=== PATIENT | male | born 1950 | race African-American/Black ===

== ENCOUNTER 2018-12-07 13:15 | Inpatient (IN) | payer MEDICARE ==
[~2018-12-07] VITALS: Ht 172.7 cm; Wt 44.2 kg
[2018-12-07 14:21] LABS: BASOPHILS # (AUTO) 0.1 (0.0-0.1); BASOPHILS % 0.5 % (0.0-1.0); EOSINOPHILS % 0.2 % (0.0-6.0); HEMATOCRIT 33.8 % (38.2-49.6); HEMOGLOBIN 11.3 g/dL (14.0-18.0); LYMPHOCYTES # (AUTO) 1.9 (1.0-3.2); LYMPHOCYTES % 19.6 % (18.0-39.1); MEAN CORPUSCULAR HGB CONC 33.4 g/dL (31-35); MEAN CORPUSCULAR VOLUME 80.7 fL (81-99); MONOCYTES # (AUTO) 0.9 (0.2-0.8); MONOCYTES % 9.2 % (4.4-11.3); NEUTROPHILS # (AUTO) 6.8 (2.1-6.9); NEUTROPHILS % 69.9 % (38.7-80.0); PLATELET COUNT 357 x10e3/uL (140-360); RED BLOOD COUNT 4.19 x10e6/uL (4.3-5.7); RED CELL DISTRIBUTION WIDTH 18.5 % (11.7-14.4)
[2018-12-07 14:31] LABS: INR 1.02; PARTIAL THROMBOPLASTIN TIME 34.3 seconds (23.8-35.5); PROTHROMBIN TIME 14.3 seconds (11.9-14.5)
[2018-12-07] MEDS ORDERED: PRAZOSIN HCL2 MG PO (14:31)
[2018-12-07] MEDS ORDERED: METOPROLOL SUCC25 MG PO (14:31)
[2018-12-07] MEDS ORDERED: SIMVASTATIN20 MG PO (14:31)
[2018-12-07] MEDS ORDERED: LOPRESSOR25 MG PO (14:31)
[2018-12-07] MEDS ORDERED: TRAZODONE HCL150 MG PO (14:31)
[2018-12-07] MEDS ORDERED: CYMBALTA60 MG PO (14:31)
[2018-12-07 14:38] LABS: ALBUMIN 2.7 g/dL (3.5-5.0); ALBUMIN/GLOBULIN RATIO 0.6 (0.8-2.0); ALKALINE PHOSPHATASE 82 IU/L (40-150); ANION GAP 17.8 mmol/L (8-16); BLOOD UREA NITROGEN 7 mg/dL (7-26); BUN/CREATININE RATIO 8 (6-25); CALCIUM 9.4 mg/dL (8.4-10.2); CARBON DIOXIDE 26 mmol/L (22-29); CHLORIDE 103 mmol/L (98-107); CREATINE KINASE 30 IU/L (30-200); CREATININE, SERUM 0.86 mg/dL (0.72-1.25); EST GLOMERULAR FILTRATION RATE > 60 ML/MIN (60-); GLUCOSE 103 mg/dL (74-118); POTASSIUM 3.8 mmol/L (3.5-5.1); SODIUM 143 mmol/L (136-145)
[2018-12-07 14:41] LABS: ALANINE AMINOTRANSFERASE < 6 IU/L (0-55)
--- NOTE | 2018-12-07 15:24 | Diagnostic Imaging Report ---
EXAMINATION: CHEST SINGLE (PORTABLE) INDICATION: Left leg pain, weakness COMPARISON: None FINDINGS: TUBES and LINES: None. LUNGS: Emphysematous changes of lungs. There is a right hilar mass. There are calcified granulomas in the left hilum and left midlung. No evidence of pneumonia or pulmonary edema. There is left bronchial wall thickening. PLEURA: No pleural effusion or pneumothorax. HEART AND MEDIASTINUM: The cardiomediastinal silhouette is unremarkable. BONES AND SOFT TISSUES: No acute osseous lesion. Soft tissues are unremarkable. UPPER ABDOMEN: No free air under the diaphragm. IMPRESSION: Right hilar mass, which could reflect pulmonary mass or lymphadenopathy. Chest CT is recommended for further evaluation. Calcified granulomas in the left hilum and left mid lung. Emphysematous changes of the lungs. Signed by: Dr. Sierra Levine MD on 12/07/2018 3:21 PM
--- OUTSIDE RECORDS SUMMARY | 2018-12-07 15:58 | XMS REPORT ---
Author Author [facility] Address Unknown Phone Unavailable Care Team Providers Care [facility] Consultant Name Role Phone Dick LUCAS Unavailable Unavailable Problems This patient has no known problems. Allergies, Adverse Reactions, Alerts This patient has no known allergies or adverse reactions. Medications This patient has no known medications. Results Test Description Test Time Test Comments Text Results Atomic Results Result Comments CHEST SINGLE (PORTABLE) 2018-12-07 15:16:00 [place] [id number] Patient Name: JUDY DO MR #: [id number] : 1950 Age/Sex: 68/M Req #: [id number] Adm Physician: Ordered by: GUERITA SPENCE INSURANCE BILLER Report #: [id number] Location: ER Room/Bed: Procedure: [id number] DX/CHEST SINGLE (PORTABLE) Exam Date: 12/07/18 Exam Time: 1450 REPORT STATUS: Signed EXAMINATION: CHEST SINGLE (PORTABLE) AMANDA CATION: Left leg pain, weakness COMPARISON: None FINDINGS: TUBES and LINES: None. LUNGS: Emphysematous changes of lungs. There is a right hilar mass. There are calcified granulomas in the left hilum and left midlung. No evidence of pneumonia or pulmonary edema. There is left bronchial wall thickening. PLEURA: No pleural effusion or pneumothorax. HEART AND MEDIASTINUM: The cardiomediastinal silhouette is unremarkable. BONES AND SOFT TISSUES: No acute osseous lesion. Soft tissues are unremarkable. UPPER ABDOMEN: No free air under the diaphragm. IMPRESSION: Right hilar mass, which could reflect pulmonary mass or lymphadenopathy. Chest CT is recommended for further evaluation. Calcified granulomas in the left hilum and left mid lung. Emphysematous changes of the lungs. Signed by: Dr. Tatianna Donovan MD on 12/07/2018 3:21 PM Dictated By: TATIANNA DONOVAN MD 1521 Transcribed By: MILTON on 12/07/18 1521 COPY TO: GUERITA SPENCE NP
[2018-12-07] MEDS: SODIUM CHLORIDE 0.9% 1000ML 1,000 ML IV SCH ×2 (16:29→18:10)
[2018-12-07 17:27] VITALS: BP 175/110
[2018-12-07] MEDS ORDERED: LABETALOL HCL 5 MG/ML 20ML VIAL IV PRN (17:45)
[2018-12-07] MEDS: LABETALOL HCL 20 MG/4 ML SYRINGE IV PRN ×2 (18:00→20:36)
[2018-12-07] MEDS ORDERED: NORCO 7.5-3251 EACH PO (18:30)
[2018-12-07] MEDS ORDERED: SODIUM CHLORIDE 0.9% 50ML 50 ML ONE (18:49)
[2018-12-07] MEDS ORDERED: IOPAMIDOL 370 MG/ML 200 ML INFUS..BTL INJ ONE (18:49)
--- NOTE | 2018-12-07 18:52 | Diagnostic Imaging Report ---
CT chest, abdomen and pelvis with intravenous contrast Indication: Possible mass, leg pain and weakness Technique: Thin collimation axial images obtained from the thoracic inlet to the level of the pubic symphysis following the uneventful administration of 100 cc of low osmolar, nonionic intravenous contrast. RADIATION DOSE: Total DLP: 332.56 mGy*cm Estimated effective dose: (DLP x 0.015 x size factor) mSv CTDIvol has been reviewed. It is below the limits set by the Radiation Protocol Committee (RPC). Dose reduction techniques used: Automated exposure control, adjustment of the mAs and/or kVp according to patient size, standardized low-dose protocol, and/or iterative reconstruction technique. Comparison: Chest x-ray 12/07/2018. CHEST FINDINGS: Lymph nodes: No enlarged axillary or supraclavicular lymph nodes. A right paratracheal lymph node measures 0.9 x 1.3 cm. Right hilar lymph nodes measure 2.1 x 2.3 cm and 2.0 x 1.3 cm. There are no enlarged subcarinal or left hilar lymph nodes. A cluster of calcified left hilar lymph nodes are present. Thyroid: Visualized portions are normal. Mediastinum: The heart is normal in size. The ascending aorta measures 3.9 cm in diameter. The proximal descending thoracic aorta measures 3.9 x 3.8 cm with focal ectasia just distal to the takeoff of the left subclavian artery. The mid descending thoracic aorta measures 2.9 cm. The main pulmonary artery measures 3.2 cm. There are no filling defects in the great vessels. Pericardial effusion measures 0.8 cm. The esophagus is collapsed. Lungs: Right Lung: Centrilobular and paraseptal emphysema. Mass in the anterior and inferior upper lobe abutting the mediastinum and the anterior pleural surface measures 6.2 x 4.7 x 5.6 cm. This mass also abuts the minor fissure. No satellite nodules. Calcified granuloma in the posterior upper lobe measures 4 mm. No mass or infiltrate in the lower lobe. Left Lung: Centrilobular and paraseptal emphysema. Calcified granuloma in the lateral upper lobe measures 8 mm. There are 2 calcified granulomata along the major fissure measuring up to 3 mm. Pleural-based nodule in the lateral lower lobe measures 4 mm (series 3, image 44). There are no infiltrates. Airways: Small amount of mucous in the anterior trachea to the right of midline. There is cylindrical bronchiectasis. The anterior right upper lobe bronchus is occluded at the level of the mass. Pleura:No pleural effusion or pneumothorax. ABDOMEN FINDINGS: Liver: Calcification in the liver dome measures 6 mm. Subcapsular low attenuating lesion in segment 4A measures 6 mm. Low attenuating lesion in segment 2 measures 4 mm. No enhancing lesions. Gallbladder: Present and contains subcentimeter gallstones.. No biliary ductal dilatation. Pancreas: There are several calcaneus is the pancreas head. No soft tissue mass or ductal dilatation. Divisum morphology of the pancreas duct is suspected. Spleen: Normal in size and contains multiple calcified granulomata. A low attenuating lesion measures 5 mm and is too small to characterize.. Adrenal Glands: Thickening of the adrenal glands particularly at the apices. A low attenuating nodule in the left adrenal apex measures 8 x 8 mm. A potential nodule in the lateral limb of the left adrenal gland measures 1.6 x 0.9 cm. No defined mass in the right adrenal gland. Kidneys: Right: Atrophic. 2 cysts in the upper pole measure up to 11 mm. A cyst in the lower pole measures 4 mm. No enhancing mass. No hydronephrosis. Left: Normal enhancement. A cyst in the upper pole measures 4 mm. No solid mass. No hydronephrosis. Lymph Nodes: No enlarged abdominal or periaortic lymph nodes Aorta: Aneurysmal dilatation of the infrarenal aorta to a diameter of 4.1 x 4.3 cm. There is a large amount of circumferential atherosclerotic plaque. The aneurysm extends for approximately 8.2 cm in length and terminates at the bifurcation. There is ectasia of the suprarenal aorta with a maximum diameter of 2.6 x 3.2 cm. Atherosclerotic plaque is present throughout. There are heavy calcifications of the renal arteries. There is atherosclerotic plaque in the proximal SMA. There are stents in the right and left external iliac arteries. The stents are patent. An aneurysm arises from a left common femoral artery bypass graft at the inferior aspect of the stent in the region of anastomosis. This measures 8 x 10 mm and may represent a pseudoaneurysm. There is overlying soft tissue swelling. There are bilateral femoral bypass grafts. There is an abandoned left femoral bypass graft which is thrombosed. PELVIS FINDINGS: Bowel: Stomach: Normal in caliber with normal wall thickness. Small Bowel: Normal in caliber with normal wall thickness. Large Bowel: Normal in caliber with normal wall thickness. Appendix: Normal appendix. Bladder: Underdistended but otherwise normal. Prostate: Measures 3.0 x 4.1 cm and is diffusely calcified.. Lymph Nodes: No enlarged mesenteric, pelvic, or inguinal lymph nodes.. Small amount of pelvic ascites. No loculated fluid collection. Bones: Diffusely demineralized. Moderate degenerative changes of the lower cervical spine. There are degenerative changes throughout the thoracic and lumbar spine. There is a transitional vertebral body and the lower lumbar spine. The bones are diffusely demineralized. There are no lytic or blastic lesions. Soft tissues: No soft tissue mass. IMPRESSION: 1. Mass in the right upper lobe with hilar and mediastinal lymphadenopathy consistent with carcinoma. This mass occludes the upper lobe bronchus. One or possibly 2 suspected nodules in the left adrenal gland are concerning for metastases. Recommend further characterization with CT dedicated to the adrenal glands. Bone scan is a more sensitive modality to detect osseous metastases. 2. Ascending aortic ectasia and fusiform infrarenal abdominal aortic aneurysm. Vascular grafts and stents in the lower extremities as described above. Potential pseudoaneurysm arising from the left external iliac artery/common femoral artery anastomosis. 3. Enlarged main pulmonary artery consistent with pulmonary artery hypertension. 4. Emphysema. 5. Healed granulomatous inflammation. 6. Low attenuating hepatic and splenic lesions are too small to characterize and bear watching on subsequent studies to confirm stability. 7. Cholelithiasis. 8. Chronic pancreatitis 9. Atrophic right kidney. Bilateral renal cysts as described above. 10. Small pericardial effusion and abdominopelvic ascites. Signed by: Dr. Kori Kelly MD on 12/07/2018 6:49 PM
[2018-12-07] MEDS: HYDROCODONE/APAP 5MG-325MG TAB PO PRN (19:10)
[2018-12-07 19:33] VITALS: BP 175/110
[2018-12-07 20:49] VITALS: BP 158/96
--- NOTE | 2018-12-07 21:18 | NUR ---
Patient requesting prn sleep medication on med recon list. Called sal Jimenez to restart meds.
[2018-12-07] MEDS: TRAMADOL HCL 50 MG TAB PO PRN (21:39)
[2018-12-07] MEDS: TRAZODONE HCL 50 MG TAB PO PRN (21:39)
[2018-12-07] MEDS: ONDANSETRON HCL INJ 2MG/ML 2ML 2 MG/ML VIAL IV PRN (22:05)
[2018-12-07 22:46] VITALS: BP 158/96
[2018-12-07 23:59] VITALS: BP 139/89
[2018-12-08] VITALS (8 sets, daily range): BP systolic 148–169; BP diastolic 78–99
[2018-12-08] MEDS: HYDROCODONE/APAP 5MG-325MG TAB PO PRN ×5 (00:17→21:42)
[2018-12-08 04:56] LABS: BASOPHILS # (AUTO) 0.1 (0.0-0.1); BASOPHILS % 0.5 % (0.0-1.0); EOSINOPHILS # (AUTO) 0.1 (0.0-0.4); EOSINOPHILS % 0.9 % (0.0-6.0); HEMATOCRIT 32.2 % (38.2-49.6); HEMOGLOBIN 11.2 g/dL (14.0-18.0); LYMPHOCYTES # (AUTO) 3.8 (1.0-3.2); LYMPHOCYTES % 33.7 % (18.0-39.1); MEAN CORPUSCULAR HEMOGLOBIN 27.9 pg (28-32); MEAN CORPUSCULAR HGB CONC 34.8 g/dL (31-35); MEAN CORPUSCULAR VOLUME 80.1 fL (81-99); MONOCYTES # (AUTO) 1.1 (0.2-0.8); MONOCYTES % 9.7 % (4.4-11.3); NEUTROPHILS # (AUTO) 6.1 (2.1-6.9); NEUTROPHILS % 54.6 % (38.7-80.0); PLATELET COUNT 332 x10e3/uL (140-360); RED BLOOD COUNT 4.02 x10e6/uL (4.3-5.7); RED CELL DISTRIBUTION WIDTH 18.4 % (11.7-14.4)
[2018-12-08 05:13] LABS: ANION GAP 16.5 mmol/L (8-16); BLOOD UREA NITROGEN 6 mg/dL (7-26); BUN/CREATININE RATIO 8 (6-25); CALCIUM 9.2 mg/dL (8.4-10.2); CARBON DIOXIDE 26 mmol/L (22-29); CHLORIDE 103 mmol/L (98-107); CREATININE, SERUM 0.79 mg/dL (0.72-1.25); EST GLOMERULAR FILTRATION RATE > 60 ML/MIN (60-); GLUCOSE 77 mg/dL (74-118); POTASSIUM 4.5 mmol/L (3.5-5.1); SODIUM 141 mmol/L (136-145)
[2018-12-08 07:21] LABS: CREATINE KINASE MB 1.2 ng/mL (0-5.0)
[2018-12-08] MEDS: LABETALOL HCL 20 MG/4 ML SYRINGE IV PRN ×2 (08:16→23:29)
[2018-12-08] MEDS: TRAMADOL HCL 50 MG TAB PO PRN ×2 (09:40→14:22)
--- NOTE | 2018-12-08 11:15 | NUR ---
Nutrition Intervention Note RD Recommendation(s) for Physician: Liberalize diet to a regular diet. Consider nutrition support with EN via a nasoenteric tube placed to the small bowel if appropriate and if family are agreeable. Jevity 1.2 at 60ml/hr via nasoenteric tube Plan of Care: RD following, monitoring for tolerance and adequacy Nutrition reason for involvement: Nutrition Risk Trigger - MST RD Assessment Initial encounter with patient. Pt with C/o nausea, lack of appetite and involuntary wt loss. Pt takes Ensure supplements at home, but has limited acceptance. Pt denies having any difficulty chewing or swallowing and can feed himself. Pt with prominent clavicle, acromion process, scapula and ribs. Temporal wasting and loss of lean body mass and subcutaneous tissue noted in bilateral upper and lower extremities, no edema noted. Spoke to son about nutrition support via a nasoenteric tube with EN wit the possibility of termite treater helper need for a PEG. Son stated he would have to discuss nutrition support with his sister and that he was not sure if they would agree or consent. Principal Problems/Diagnoses: Wt loss, Slow blood flow to left leg PMH: prostate cancer with possible metastasis, HTN, LLE stents were placed in Novemenber IVF: NS at 75ml/hr GI: + Nausea/vomiting Skin: intact skin Labs: (lab results reviewed 12/08) Meds: (Mar reviewed 12/08) Malnutrition Evaluation (12/08) The patient meets criteria for unspecified SEVERE protein-calorie malnutrition. Energy intake: <75% of estimated energy requirements for >3 months Weight loss: >7.5% in 3 months (Chronic) Fat loss: Severe Muscle loss:Severe Supporting Evidence: Fluid accumulation: none Functional Status: measurably reduced Diet Education Needs Assessment: Diet education not indicated Ht:68 Wt:102.13lbs BMI:15.5kg/m2 IBW:154lbs Estimated Nutritional Needs: 1624 - 1856 kcals at 35-40 kcals/kg/bw 46-92g of protein at 1-2g/kg/bw Nutrition Prescription (Diet Order): renal diet Food Allergies: No known food allergies Diet Adequacy: Not meeting calorie needs, Not meeting protein needs) Tolerance: Tolerating PO Nutrition Care Level: Moderate Nutrition Diagnosis: Malnutrition related to chronic illness as evidenced by a BMI of 15.5 Goal:Patient will meet 75-100% of estimated needs by follow up Interventions: General healthful diet, Commercial beverage Monitoring/Evaluation: Total energy intake, Total protein intake, Liquid supplement, Weight change Abiel Llanes RD, RAIZA, CNSC
[2018-12-08 14:23] LABS: CREATINE KINASE MB 1.2 ng/mL (0-5.0)
[2018-12-08] MEDS: HYDROCODONE/APAP 7.5MG-325MG 1 EA TAB PO PRN (17:44)
[2018-12-08] MEDS: SODIUM CHLORIDE 0.9% 1000ML 1,000 ML IV SCH (17:44)
--- NOTE | 2018-12-08 21:34 | History and Physical ---
PRIMARY CARE PHYSICIAN: Dr. Hickey. CHIEF COMPLAINT: Unintentional weight loss and shortness of breath. HISTORY OF PRESENT ILLNESS: This is a 68-year-old man with a history of prostate cancer and more than a 60-pack year smoking history, who has severe peripheral arterial disease and aortic aneurysm which repaired in the past. The patient was in shortness of breath. Also lost 35 pounds in the past 3 months. He went to see Dr. Hickey who is his new primary care doctor. When he was asked to come to the hospital for evaluation, a CT scan of the chest, abdomen and pelvis were obtained, which showed a lung mass, adrenal nodule and lymph node suggestive of lung cancer. He was admitted for further evaluation and management. PAST MEDICAL HISTORY: Hypertension, chronic pain syndrome with chronic back pain, more than 60-pack year smoking history, aortic aneurysm status post repair, severe peripheral arterial disease status post bypass surgery on bilateral legs. He is status post stent on bilateral legs as well. Parkinson disease. PAST SURGICAL HISTORY: Aortic aneurysm repair, stent placement to the left leg x3 and stent placement to the right leg x2. He is also status post bypass procedures of the lower extremities. ALLERGIES: PER ELECTRONIC MEDICAL RECORD. FAMILY HISTORY: The patient's mother and father had lung cancer. Patient's brother also had lung cancer. SOCIAL HISTORY: Patient is . Smokes 1 pack of cigarette per day for more than 60 years. No alcohol, illicits. 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 He has no asbestos exposure per his knowledge. MEDICATIONS: Per electronic medical record. REVIEW OF SYSTEMS: Denies any fever, chills, sweats. Denies any nausea, vomiting, diarrhea. Denies any leg pain, skin rash or dizziness. PHYSICAL EXAMINATION VITAL SIGNS: Have been reviewed. GENERAL: A tired-appearing man resting in bed, cachectic appearing. HEENT: Anicteric. He has bitemporal wasting which is severe. CARDIOVASCULAR: Normal S1 and S2. LUNGS: He has reduced breath sounds throughout. ABDOMEN: Soft, nontender, nondistended. EXTREMITIES: He has no edema or calf tenderness. SKIN: Dry. PSYCHIATRIC: Flat affect. LABS: Reviewed. MEDICATIONS: Reviewed. ASSESSMENT: This is a 68-year-old man. 1. Unintentional weight loss. 2. Right lung mass, which is 6.2 x 4.7 x 5.6 cm. 3. Lymphadenopathy with right paratracheal lymph node and right hilar lymphadenopathy 2.1 x 2.3 cm as well as 2 x 1.3 cm. 4. Tobacco abuse, more than 60-pack year smoking history. 5. Abdominal aortic aneurysm of 2.9 cm in the descending thoracic aorta. 6. Emphysematous changes of the lung. 7. Cholelithiasis. 8. Chronic pancreatitis, seen on imaging. 9. Left adrenal nodule. 10. History of prostate cancer. 11. Parkinson disease. 12. Severe protein-calorie malnutrition bitemporal wasting. 13. Underweight with a BMI of 15.5 PLAN 1. The patient and family seem to be interested in having a biopsy to have an official diagnosis, likely biopsy would be appropriate of lymph node. We will need to consult radiology. Patient does not appear to be interested in hospice at this time. We also consult pulmonary services to assist in management. 2. I have counseled patient on need to cease from smoking. We will order nicotine patch. 3. Continue with pain medication and pain management. 4. Continue antihypertensive medication. 5. We will use SCD. We will also use Lovenox for DVT prophylaxis. 6. Disposition: We will consult pulmonary services. Patient palliative care at this time. We will seek to obtain a biopsy for official diagnosis and proceed from there. I will further discuss with family in the morning, which includes his son, his current , and the patient. Job#: [id number] MAXWELL
[2018-12-08] MEDS: SIMVASTATIN 20 MG TAB PO SCH (21:40)
[2018-12-08] MEDS: NICOTINE 21 MG/EA PATCH TOP SCH (21:40)
[2018-12-08] MEDS: TRAZODONE HCL 50 MG TAB PO PRN (21:42)
--- NOTE | 2018-12-08 23:29 | NUR ---
Elevated BP. Given PRN BP med.
--- NOTE | 2018-12-08 23:30 | NUR ---
Patient stated attending will order oint for R knee rash. Called Dr. Barrow and received order for bacitracin.
[2018-12-09] VITALS (9 sets, daily range): BP systolic 134–182; BP diastolic 90–99
[2018-12-09] MEDS: HYDROCODONE/APAP 7.5MG-325MG 1 EA TAB PO PRN ×4 (00:57→22:40)
--- NOTE | 2018-12-09 02:40 | NUR ---
Dr. Collazo here for rounding. Reported patient had 2 episodes of syncope in the past. Orders received for MRA of Head WOW. [facility]. Patient's family will send medical records from the [facility] today and forward to Dr. Collazo.
[2018-12-09 06:25] LABS: CLARITY,URINE CLEAR (CLEAR); COLOR,URINE YELLOW (YELLOW)
[2018-12-09 06:26] LABS: BACTERIA,URINE RARE /HPF; BILIRUBIN,URINE NEGATIVE (NEGATIVE); EPITHELIAL CELLS,URINE FEW /LPF; KETONES,URINE NEGATIVE (NEGATIVE); LEUKOCYTE ESTERASE ,URINE NEGATIVE (NEGATIVE); NITRITE,URINE NEGATIVE (NEGATIVE); PROTEIN,URINE DIPSTICK NEGATIVE (NEGATIVE); URINE UROBILINOGEN 0.2 mg/dL (0.2 - 1)
[2018-12-09 06:27] LABS: THYROID STIMULATING HORMONE 1.154 uIU/mL (0.350-4.940)
[2018-12-09 06:32] LABS: FOLATE 3.4 ng/mL (7.0-15.4)
[2018-12-09 07:17] LABS: HIV 1&2 AB SCREEN NON-REACTIVE (NONREACTIVE)
[2018-12-09] MEDS: MULTIVITAMINS/MINERALS TAB PO SCH (08:20)
[2018-12-09] MEDS: NICOTINE 21 MG/EA PATCH TOP SCH (08:29)
[2018-12-09] MEDS: THIAMINE HCL 100 MG TAB PO SCH (08:29)
[2018-12-09] MEDS: BACITRACIN ZINC 15 GM OINT TOP SCH ×2 (08:29→16:15)
[2018-12-09] MEDS ORDERED: METOPROLOL SUCCINATE 25 MG TAB XL PO SCH (09:00)
[2018-12-09] MEDS: TRAMADOL HCL 50 MG TAB PO PRN (10:50)
[2018-12-09] MEDS ORDERED: GADOBENATE DIMEGLUMINE 1 ML IV ONE (13:00)
[2018-12-09] MEDS: SODIUM CHLORIDE 0.9% 1000ML 1,000 ML IV SCH ×2 (13:30→21:00)
--- NOTE | 2018-12-09 14:59 | Diagnostic Imaging Report ---
MRI BRAIN WOW HISTORY: Weight loss, lung mass COMPARISON: None. TECHNIQUE: Multiplanar, multisequence MRI of the brain (including diffusion-weighted imaging) was performed before and after the administration of intravenous, gadolinium based contrast. 9 mL of MultiHance were administered. DISCUSSION: Scalp/bone marrow: Ill-defined marrow STIR hyperintensity and enhancement in the right paramedian parietal calvarium measures up to 3 cm in size (AP dimension; series 11, image 23). Similar, 1.2 cm focus of enhancement is seen along the left jugular tubercle (series 10, image 20). Brain sulci: Mildly prominent. Ventricles: Mild compensatory dilatation. Extra-axial spaces: No masses or fluid collections. Parenchyma: Scattered T2/FLAIR hyperintense foci throughout the supratentorial white matter and puneet are likely chronic microvascular ischemic changes. There is an old small cortical infarct in the superior left cerebellum. Otherwise, no mass, hemorrhage, or acute vascular insults. No abnormal parenchymal, leptomeningeal, or dural enhancement is seen. Vessels: Normal flow voids in major arteries and veins. Sellar/Suprasellar region: No abnormalities. Craniocervical junction: No abnormalities. Incidental findings: None. IMPRESSION: 1. Focal enhancing marrow lesions in the right parietal calvarium and left jugular tubercle may be due to osseous metastatic disease. 2. No other evidence for intracranial metastatic disease. 3. No acute intracranial abnormalities. 4. Mild supratentorial chronic microvascular ischemic change. Mild generalized cerebral volume loss. 5. 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 Signed by: Dr. Kodak Schultz M.D. on 12/09/2018 2:55 PM
--- NOTE | 2018-12-09 15:05 | Diagnostic Imaging Report ---
MRA HEAD WO HISTORY: Syncope COMPARISON: Concurrent MRI of the brain TECHNIQUE: Axial 3D intracranial [id number] MRA images were obtained without contrast. Maximum intensity projection images were created. FINDINGS: Carotid arteries: No flow abnormalities in the intracranial internal carotid arteries. Normal A1 and M1 segments. Vertebrobasilar Circulation: Right vertebral artery: No flow abnormalities. Left vertebral artery: No flow abnormalities. Basilar artery: No flow abnormalities. Posterior cerebral arteries: No flow abnormalities. Normal Variants: ACom: Not visualized. PComs: May be patent on the right. Not visualized on the left. Vertebral arteries: Co-dominant. 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 IMPRESSION: No intracranial MRA abnormalities. Signed by: Dr. Kodak Schultz M.D. on 12/09/2018 3:02 PM
[2018-12-09] MEDS ORDERED: TRAMADOL HCL 50 MG TAB PO PRN (16:00)
[2018-12-09] MEDS: HYDROCODONE/APAP 5MG-325MG TAB PO PRN (16:12)
[2018-12-09] MEDS ORDERED: CILOSTAZOL 100 MG TAB PO SCH (16:30)
[2018-12-09] MEDS: MORPHINE SULFATE INJ 4 MG/ML INJ 1ML IV PRN (19:40)
[2018-12-09] MEDS: ONDANSETRON HCL INJ 2MG/ML 2ML 2 MG/ML VIAL IV PRN (19:40)
[2018-12-09] MEDS ORDERED: TIZANIDINE HCL4 MG PO (19:49)
[2018-12-09] MEDS ORDERED: ASPIRIN325 MG PO (19:52)
[2018-12-09] MEDS ORDERED: DOXEPIN HCL25 MG PO (19:52)
[2018-12-09] MEDS ORDERED: MIRTAZAPINE15 MG PO (19:52)
[2018-12-09] MEDS ORDERED: CYCLOBENZAPRINE10 MG PO (19:53)
[2018-12-09] MEDS: DOXEPIN HCL 10 MG CAP PO SCH (21:00)
[2018-12-09] MEDS: SENNOSIDES 8.6 MG TAB PO SCH (21:22)
[2018-12-09] MEDS: SIMVASTATIN 20 MG TAB PO SCH (21:22)
[2018-12-09] MEDS: MIRTAZAPINE 15 MG TAB PO SCH (21:22)
[2018-12-09] MEDS: TRAZODONE HCL 50 MG TAB PO PRN (21:23)
--- NOTE | 2018-12-09 21:30 | NUR ---
DR. KIM HERE FOR ROUNDING. OK TO CONTINUE NEW HOME MEDS.
[2018-12-10] VITALS (9 sets, daily range): BP systolic 120–175; BP diastolic 80–115
[2018-12-10] MEDS: MORPHINE SULFATE INJ 4 MG/ML INJ 1ML IV PRN ×5 (00:04→22:14)
[2018-12-10] MEDS: ONDANSETRON HCL INJ 2MG/ML 2ML 2 MG/ML VIAL IV PRN ×3 (00:04→22:14)
--- NOTE | 2018-12-10 00:05 | Consultation ---
DATE OF CONSULTATION: December 09, 2018 PULMONARY MEDICINE CONSULT REFERRING PHYSICIAN: Dr. Danial Morales. HISTORY: Mr. Danial Alvarado is a pleasant 68-year-old gentleman with lung mass. Patient presents with failure of thrive. Patient has unintentional weight loss of 35 pounds recently, mainly since his leg surgeries in July 2018. Since July 2018, furthermore the patient is in bed for most of the day or sitting. He has exercise tolerance about 3 rooms, limited by pain to the leg and shortness of breath. Patient with no history of allergies. No asthma. Mild GERD one and two times per week. He takes Anoro for his breathing condition. Patient came to the emergency room and he was found with CT of chest with right paratracheal 1.3 cm lymph node, right hilar 2.2 cm lymph node, mass in left upper lobe anterior segment of 6.2 cm x 4.7 x 5.6 cm, nonspecific adrenal nodules, mild bronchiectasis, multiple splenic granulomas, multiple cystic changes to the lung . He had some non-pulmonary findings of abdominal aneurysm among other findings. He is active chronic smoker. He formally would drink heavily. Patient would often go fishing a lot in the past. In April 2016, the patient was found with a lung opacity to the right side and he underwent bronchoscopy for which diagnosis attempts provided what seems like nondiagnostic findings. Patient also underwent a PET/CT which sounds like the lesion was not hot. PAST MEDICAL HISTORY: Hypertension, chronic pain to the back and to the leg, aortic aneurysm under surveillance, severe peripheral vascular disease status post bypass surgery on both legs and stenting, possible Parkinson's. MEDICATIONS: Medication list reviewed per electronic record. ALLERGIES: NO KNOWN DRUG ALLERGIES. SOCIAL HISTORY: He is and lives with his . He smoked half a pack a day from ages 10 to 68 and is actively smoking. Alcohol was at least a fifth a day of alcohol beverage drink, but he cut down significantly. No illicit drugs. 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 He sometimes smokes marijuana. 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 No definite asbestos exposures unless he is thinking about car brakes. FAMILY HISTORY: Noncontributory to this. REVIEW OF SYSTEMS GENERAL: No fevers. HEENT: No dry mouth. ENDOCRINE: No thyroid disease known. PULMONARY: No hemoptysis. CARDIAC: No heart attacks. GI: No constipation. : No blood in the urine. NEUROLOGIC: No seizures. He is passing one or two times a day at times over the last 6 months. DERMATOLOGIC: No rashes. MUSCULOSKELETAL: There is some arthritis. PSYCHIATRIC: No depression. PHYSICAL EXAMINATION VITALS: Afebrile, vital signs noted per electronic record. GENERAL: No acute distress, alert and calm. HEENT: Normocephalic and atraumatic. Throat is midline. NECK: Supple. LUNGS: Bilateral air entry is mildly decreased, rare rhonchi. CARDIOVASCULAR: S1 and S2. No murmurs, rubs or gallops. ABDOMEN: Soft and nontender. EXTREMITIES: No clubbing, no cyanosis, and no edema. INTEGUMENT: No rash. No purpura. LABS: Potassium 4.5, bicarbonate 36, BUN 6, creatinine 0.8. White count 11, hematocrit 30. Albumin is 2.7, globulin is 4.5. IMPRESSION 1. Right upper lobe mass up to 6.2 cm. 2. Hilar mediastinal lymphadenopathy. 3. Radiographic left upper lobe anterior segment occlusion. 4. Nonspecific adrenal lesions. 5. Mild bronchiectasis. 6. Diffuse cystic lung disease, possible related to chronic obstructive pulmonary disease, but rule out other. 7. Peripheral vascular disease with history of extensive bilateral leg operations and interventions and abdominal aortic aneurysm, infrarenal. 8. Enlarged main pulmonary artery consistent with pulmonary artery hypertension radiographically. 9. Chronic obstructive pulmonary disease. 10. CT evidence of prior granulomatous condition, possibly histoplasmosis, but rule out other. 11. History of chronic pancreatitis per abdominal CT, possible pancreatic divisum. 12. Hypertension. 13. Chronic pain. 14. Chronic/active smoker. 15. Former alcohol dependency. 16. Multiple occupational and environmental exposure including to marijuana, welding, fishing events. 17. Mid gastroesophageal reflux disease. PLAN: Based on patient's history it appeared the lung lesion had some workup in April 2016 and may have been biopsy negative and may have been negative on PET/CT. I strongly recommend to bring in the records and the would try to bring in them within the day to see if should avert transthoracic needle biopsy. Check TSH, HIV, iron levels given his low normal MCV, ferritin B12. Followup his clinical absorption of nutrition and if there is concern of pancreatic insufficiency then he may need further vitamin testing and replenishment. Due to syncope episodes, recommend MRI of brain, which we will protocol as typical for possible lung tumors which will be with and without contrast. I will order an echocardiogram to assess. It is reasonable for PT evaluation given the syncopal events and then his COPD requires continued maintenance therapy and Anoro seems like a decent choice of maintenance therapy and patient should get some rescue therapy. We will check histoplasmosis urine antigen, cryptococcal antigen and consider if other diagnostic testing is indicated. Thank you very much, Dr. Andrew Barrow for this very interesting consult. Please feel free to contact me anyway if I can help with the care of Mr. Alvarado. Job#: [id number] RAFA
[2018-12-10] MEDS: LABETALOL HCL 20 MG/4 ML SYRINGE IV PRN ×2 (05:54→12:55)
--- NOTE | 2018-12-10 07:08 | NUR ---
received pt lying in bed with eyes open, TV on, Resp even and unlabored. call light within reach. son at bedside.
--- NOTE | 2018-12-10 07:32 | NUR ---
IM- Progress Note O/N: no events REVIEW OF SYSTEMS: Denies any fever, chills, sweats. Denies any nausea, vomiting, diarrhea. Denies any leg pain, skin rash or dizziness. PHYSICAL EXAMINATION VITAL SIGNS: Have been reviewed. GENERAL: A tired-appearing man resting in bed, cachectic appearing. HEENT: Anicteric. He has bitemporal wasting which is severe. CARDIOVASCULAR: Normal S1 and S2. LUNGS: He has reduced breath sounds throughout. ABDOMEN: Soft, nontender, nondistended. EXTREMITIES: He has no edema or calf tenderness. SKIN: Dry. PSYCHIATRIC: Flat affect. LABS: Reviewed. MEDICATIONS: Reviewed. ASSESSMENT: This is a 68-year-old man. 1. Unintentional weight loss. 2. Right lung mass, which is 6.2 x 4.7 x 5.6 cm. 3. Lymphadenopathy with right paratracheal lymph node and right hilar lymphadenopathy 2.1 x 2.3 cm as well as 2 x 1.3 cm. 4. Tobacco abuse, more than 60-pack year smoking history. 5. Abdominal aortic aneurysm of 2.9 cm in the descending thoracic aorta. 6. Emphysematous changes of the lung. 7. Cholelithiasis. 8. Chronic pancreatitis, seen on imaging. 9. Left adrenal nodule. 10. History of prostate cancer. 11. Parkinson disease. 12. Severe protein-calorie malnutrition bitemporal wasting. 13. Underweight with a BMI of 15.5 PLAN 1. The patient and family seem to be interested in having a biopsy to have an official diagnosis, likely biopsy would be appropriate of lymph node. We will need to consult radiology. Patient does not appear to be interested in hospice at this time. We also consult pulmonary services to assist in management. 2. I have counseled patient on need to cease from smoking. We will order nicotine patch. 3. Continue with pain medication and pain management. 4. Continue antihypertensive medication. 5. We will use SCD. We will also use Lovenox for DVT prophylaxis. 6. Disposition: We will consult pulmonary services. Patient palliative care at this time. We will seek to obtain a biopsy for official diagnosis and proceed from there. I will further discuss with family in the morning, which includes his son, his current , and the patient. 12/09 MRI possible metastatic lesions to calvarium; f/u bx. 12/10 control HTN; bx pending; Andrew Barrow MD, Phd.
[2018-12-10] MEDS ORDERED: METOPROLOL TARTRATE 50 MG TAB PO SCH (07:45)
[2018-12-10] MEDS: CYCLOBENZAPRINE HCL 10 MG TAB PO SCH ×2 (08:18→17:26)
[2018-12-10] MEDS: THIAMINE HCL 100 MG TAB PO SCH (08:18)
[2018-12-10] MEDS: SENNOSIDES 8.6 MG TAB PO SCH ×2 (08:18→20:33)
[2018-12-10] MEDS: MULTIVITAMINS/MINERALS TAB PO SCH (08:18)
[2018-12-10] MEDS: METOPROLOL SUCCINATE 50 MG TAB XL PO SCH (08:19)
[2018-12-10] MEDS: LIDOCAINE 5% PATCH TP SCH (08:19)
[2018-12-10] MEDS: BACITRACIN ZINC 15 GM OINT TOP SCH ×2 (08:19→17:26)
[2018-12-10] MEDS: NICOTINE 21 MG/EA PATCH TOP SCH (08:19)
[2018-12-10] MEDS: TIZANIDINE HCL 4 MG TAB PO SCH ×2 (08:19→17:26)
[2018-12-10 08:26] LABS: BASOPHILS % 0.3 % (0.0-1.0); EOSINOPHILS # (AUTO) 0.1 (0.0-0.4); EOSINOPHILS % 0.7 % (0.0-6.0); HEMATOCRIT 28.3 % (38.2-49.6); HEMOGLOBIN 10.3 g/dL (14.0-18.0); LYMPHOCYTES # (AUTO) 1.7 (1.0-3.2); LYMPHOCYTES % 14.6 % (18.0-39.1); MEAN CORPUSCULAR HEMOGLOBIN 28.9 pg (28-32); MEAN CORPUSCULAR HGB CONC 36.4 g/dL (31-35); MEAN CORPUSCULAR VOLUME 79.5 fL (81-99); MONOCYTES # (AUTO) 1.1 (0.2-0.8); MONOCYTES % 8.8 % (4.4-11.3); NEUTROPHILS # (AUTO) 8.9 (2.1-6.9); NEUTROPHILS % 75.1 % (38.7-80.0); PLATELET COUNT 247 x10e3/uL (140-360); RED BLOOD COUNT 3.56 x10e6/uL (4.3-5.7); RED CELL DISTRIBUTION WIDTH 18.1 % (11.7-14.4)
[2018-12-10 09:04] LABS: BLOOD UREA NITROGEN < 5 mg/dL (7-26); CALCIUM 8.6 mg/dL (8.4-10.2); CARBON DIOXIDE 25 mmol/L (22-29); CHLORIDE 103 mmol/L (98-107); CREATININE, SERUM 0.68 mg/dL (0.72-1.25); EST GLOMERULAR FILTRATION RATE > 60 ML/MIN (60-); GLUCOSE 85 mg/dL (74-118); SODIUM 140 mmol/L (136-145)
[2018-12-10 09:09] LABS: BUN/CREATININE RATIO 7 (6-25)
[2018-12-10] MEDS: SODIUM CHLORIDE 0.9% 1000ML 1,000 ML IV SCH ×2 (09:46→20:33)
[2018-12-10] MEDS ORDERED: MIDAZOLAM HCL 2 MG/2 ML VIAL ONE (10:02)
[2018-12-10] MEDS ORDERED: FENTANYL CITRATE/PF 100MCG/2 ML INJ ONE (10:03)
--- NOTE | 2018-12-10 12:29 | Diagnostic Imaging Report ---
Examination: Single AP view of the chest. COMPARISON: CT scan of the chest abdomen and pelvis 12/07/2018 INDICATION: Status post lung biopsy, right lung DISCUSSION: The lungs are hyperinflated. Calcified granuloma left lung. Right hilar/upper lobe mass is grossly unchanged. No pneumothorax status post percutaneous biopsy. Tortuous, ectatic thoracic aorta with normal heart size. Regional skeletal structures intact. IMPRESSION: No evidence of pneumothorax status post percutaneous biopsy of right upper lobe lung mass. Signed by: Dr. Iam Cardona M.D. on 12/10/2018 12:26 PM
--- NOTE | 2018-12-10 12:53 | Diagnostic Imaging Report ---
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 Cardona Pre-operative diagnosis: Right upper lobe mass Post-operative diagnosis: Right upper lobe mass Conscious Sedation: Versed 0.5 mg and Fentanyl 25 mcg. The patient's heart rate and pulse oximetry were continuously monitored by the interventional radiology nurse. Blood pressure was monitored at 5 minute intervals. Total intraservice time for sedation: 30 minutes Additional Medications: Lidocaine 1% for local anesthesia Fluoroscopy time: 0 Contrast used: 0 Estimated blood loss: Less than 10 cc Blood products administered: None Specimens: Fine-needle aspiration specimens x2, core biopsy specimens x5 Implants: None Condition at completion: Stable Disposition: Returned to floor DISCUSSION: Informed consent was obtained from the patient and documented in the medical record after discussion of risks and benefits. The patient was placed in the supine position on the CT couch and a marker grid was placed over the right upper chest. Limited CT of the upper chest confirmed a suitable percutaneous approach to the right upper lobe mass. The overlying skin was prepped and draped in the standard sterile fashion. 1% lidocaine was infiltrated into the skin and subcutaneous tissues for local anesthesia. Then under intermittent CT guidance, a 16-gauge needle guide was advanced into the mass. 2 fine-needle aspiration specimens were then obtained coaxially using 22-gauge needles and submitted to on-site cytopathology personnel. Intralesional location was confirmed. Subsequently, 5 core biopsy specimens were obtained using an 18-gauge, 2 cm throw core biopsy apparatus and placed in formalin. At the conclusion of sampling a small amount of autologous blood was injected through the guide as it was removed. A sterile dressing was applied. A final limited CT of the chest was obtained. The patient tolerated the procedure well without immediate complication. FINDINGS: Right upper lobe pulmonary mass. IMPRESSION: Successful CT-guided fine-needle aspiration and core biopsies of a right upper lobe mass, without immediate complication. Serial chest radiographs will be obtained to assess for development of delayed pneumothorax. Signed by: Dr. Iam Cardona M.D. on 12/10/2018 12:49 PM
[2018-12-10] MEDS ORDERED: POTASSIUM CHLORIDE 20 MEQ TAB CR PO STA (15:01)
[2018-12-10] MEDS: HYDROCODONE/APAP 7.5MG-325MG 1 EA TAB PO PRN ×2 (16:01→20:34)
--- NOTE | 2018-12-10 16:14 | Progress Note ---
DATE: December 10, 2018 PULMONARY MEDICINE PROGRESS NOTE SUBJECTIVE: Mr. Alvarado was seen and examined at bedside. He had finalization of his MRI report. The MRA was also unremarkable on the cranial vasculature. Patient at this time already had procedure and just came back. He did not have any excess chips seen. Patient with chest x-ray demonstrating no evidence of pneumothorax after procedure. He is already awake and tolerating diet. REVIEW OF SYSTEMS: No headache, no bleeding. OBJECTIVE VITAL SIGNS: Afebrile. Vital signs noted per electronic record. GENERALLY: No acute distress, alert and calm. HEENT: Normocephalic, atraumatic. NECK: Supple. Throat midline. LUNGS: Bilateral air entry, decreased breath sounds but still moderate amount of breath sounds and symmetric on both sides. CARDIOVASCULAR: S1 and S2. No murmurs, rubs or gallops. ABDOMINAL: Soft, nontender. EXTREMITIES: No clubbing, no cyanosis. There is no edema. INTEGUMENT: No rash. No purpura. LABS: Labs reviewed per the electronic record. Potassium 3.0. IMPRESSION AND PLAN 1. Lung mass. 2. Calvarial abnormalities suspicious for metastatic disease. 3. Chronic smoker. 4. Weight loss, cannot rule out pancreatic insufficiency versus cachexia of malignancy. 5. Chronic obstructive pulmonary disease. At this time we await the biopsies of lung mass. Patient will need eventual PET CT. If this is not resectable, he will be recommended for chemotherapy with or without other treatment. Oncology was already consulted, and they are following. Will follow along closely. Job#: [id number] EV
--- NOTE | 2018-12-10 16:57 | Diagnostic Imaging Report ---
Examination: Single AP view of the chest. COMPARISON: 12/10/2018 at 1207 hours INDICATION: Post procedure DISCUSSION: See impression IMPRESSION: Unchanged appearance of the chest relative to 4 hours prior. No pneumothorax. Persistent findings include hyperinflation, right upper lobe mass superimposed over the right hilum, and a left lung calcified granuloma. Signed by: Dr. Iam Cardona M.D. on 12/10/2018 4:54 PM
--- NOTE | 2018-12-10 19:30 | NUR ---
patient received. Patient is resting in bed. Resp even and unlabored. No acute distress noted. patient requests for pain med, will medicate per mar. family at bed time. call light within reach. instruct to call for assistance. bed alarm on. bed low/locked. continue to monitor closely
[2018-12-10] MEDS: SIMVASTATIN 20 MG TAB PO SCH (20:33)
[2018-12-10] MEDS: DOXEPIN HCL 10 MG CAP PO SCH (20:33)
[2018-12-10] MEDS: MIRTAZAPINE 15 MG TAB PO SCH (20:33)
[2018-12-11] VITALS: BP 120/83
[2018-12-11 00:05] VITALS: BP 167/108
[2018-12-11] MEDS: LABETALOL HCL 20 MG/4 ML SYRINGE IV PRN ×2 (00:09→06:32)
[2018-12-11] MEDS: HYDROCODONE/APAP 7.5MG-325MG 1 EA TAB PO PRN ×2 (00:30→06:44)
[2018-12-11] MEDS: MORPHINE SULFATE INJ 4 MG/ML INJ 1ML IV PRN ×2 (02:15→03:10)
[2018-12-11] MEDS: ONDANSETRON HCL INJ 2MG/ML 2ML 2 MG/ML VIAL IV PRN (03:10)
[2018-12-11 05:38] VITALS: BP 170/106
--- NOTE | 2018-12-11 07:15 | NUR ---
PT ALERT RESP EVEN AND UNLABORED AT THIS TIME NO DISTRESS NOTED, PT HAS FAMILY MEMBER AT BEDSIDE, PT ABLE TO MAKE NEEDS KNOWN, CALL LIGHT IN REACH.
[2018-12-11] MEDS ORDERED: CYMBALTA60 MG PO (07:17)
[2018-12-11] MEDS ORDERED: SENOKOT8.6 MG PO (07:17)
[2018-12-11] MEDS ORDERED: DOXEPIN HCL25 MG PO (07:17)
[2018-12-11] MEDS ORDERED: PRAZOSIN HCL2 MG PO (07:17)
[2018-12-11] MEDS ORDERED: TIZANIDINE HCL4 MG PO (07:17)
[2018-12-11] MEDS ORDERED: TRAZODONE HCL150 MG PO (07:17)
[2018-12-11] MEDS ORDERED: NICODERM CQ1 EAC2 TOP (07:17)
[2018-12-11] MEDS ORDERED: MIRTAZAPINE15 MG PO (07:17)
[2018-12-11] MEDS ORDERED: Lidocaine Patch TP (07:17)
[2018-12-11] MEDS ORDERED: CYCLOBENZAPRINE10 MG PO (07:17)
[2018-12-11] MEDS ORDERED: SIMVASTATIN20 MG PO (07:17)
[2018-12-11] MEDS ORDERED: TOPROL XL50 MG PO (07:17)
[2018-12-11] MEDS ORDERED: TYLENOL WITH C1 EACH PO (07:17)
[2018-12-11] MEDS ORDERED: Multivitamins/Minerals PO (07:17)
--- NOTE | 2018-12-11 07:18 | NUR ---
Discharge Summary Principal Dx: ASSESSMENT: This is a 68-year-old man. 1. Unintentional weight loss. 2. Right lung mass, which is 6.2 x 4.7 x 5.6 cm. 3. Lymphadenopathy with right paratracheal lymph node and right hilar lymphadenopathy 2.1 x 2.3 cm as well as 2 x 1.3 cm. 4. Tobacco abuse, more than 60-pack year smoking history. 5. Abdominal aortic aneurysm of 2.9 cm in the descending thoracic aorta. 6. Emphysematous changes of the lung. 7. Cholelithiasis. 8. Chronic pancreatitis, seen on imaging. 9. Left adrenal nodule. 10. History of prostate cancer. 11. Parkinson disease. 12. Severe protein-calorie malnutrition bitemporal wasting. 13. Underweight with a BMI of 15.5 Secondary Dx: Cig use cc and HPi; refer to H&P Hospital Course: ASSESSMENT: This is a 68-year-old man. 1. Unintentional weight loss. 2. Right lung mass, which is 6.2 x 4.7 x 5.6 cm. 3. Lymphadenopathy with right paratracheal lymph node and right hilar lymphadenopathy 2.1 x 2.3 cm as well as 2 x 1.3 cm. 4. Tobacco abuse, more than 60-pack year smoking history. 5. Abdominal aortic aneurysm of 2.9 cm in the descending thoracic aorta. 6. Emphysematous changes of the lung. 7. Cholelithiasis. 8. Chronic pancreatitis, seen on imaging. 9. Left adrenal nodule. 10. History of prostate cancer. 11. Parkinson disease. 12. Severe protein-calorie malnutrition bitemporal wasting. 13. Underweight with a BMI of 15.5 PLAN 1. The patient and family seem to be interested in having a biopsy to have an official diagnosis, likely biopsy would be appropriate of lymph node. We will need to consult radiology. Patient does not appear to be interested in hospice at this time. We also consult pulmonary services to assist in management. 2. I have counseled patient on need to cease from smoking. We will order nicotine patch. 3. Continue with pain medication and pain management. 4. Continue antihypertensive medication. 5. We will use SCD. We will also use Lovenox for DVT prophylaxis. 6. Disposition: We will consult pulmonary services. Patient palliative care at this time. We will seek to obtain a biopsy for official diagnosis and proceed from there. I will further discuss with family in the morning, which includes his son, his current , and the patient. 12/09 MRI possible metastatic lesions to calvarium; f/u bx. 12/10 control HTN; bx pending; 12/11 s/p Successful CT-guided fine-needle aspiration and core biopsies of a right upper lobe mass, without immediate complication. d/c home f/u PCP 1 week and Debbie 1 week condition: stable d/c time>35mins. Andrew Barrow MD, Phd.
[2018-12-11 07:26] LABS: BASOPHILS # (AUTO) 0.1 (0.0-0.1); BASOPHILS % 0.6 % (0.0-1.0); EOSINOPHILS # (AUTO) 0.2 (0.0-0.4); EOSINOPHILS % 2.3 % (0.0-6.0); HEMATOCRIT 32.8 % (38.2-49.6); HEMOGLOBIN 10.3 g/dL (14.0-18.0); LYMPHOCYTES # (AUTO) 2.2 (1.0-3.2); LYMPHOCYTES % 21.3 % (18.0-39.1); MEAN CORPUSCULAR HEMOGLOBIN 26.3 pg (28-32); MEAN CORPUSCULAR HGB CONC 31.4 g/dL (31-35); MEAN CORPUSCULAR VOLUME 83.9 fL (81-99); MONOCYTES # (AUTO) 1.1 (0.2-0.8); MONOCYTES % 11.2 % (4.4-11.3); NEUTROPHILS # (AUTO) 6.5 (2.1-6.9); NEUTROPHILS % 64.1 % (38.7-80.0); PLATELET COUNT 303 x10e3/uL (140-360); RED BLOOD COUNT 3.91 x10e6/uL (4.3-5.7); RED CELL DISTRIBUTION WIDTH 18.2 % (11.7-14.4)
[2018-12-11 07:32] LABS: ANION GAP 15.4 mmol/L (8-16); BLOOD UREA NITROGEN < 5 mg/dL (7-26); CARBON DIOXIDE 27 mmol/L (22-29); CHLORIDE 103 mmol/L (98-107); CREATININE, SERUM 0.73 mg/dL (0.72-1.25); EST GLOMERULAR FILTRATION RATE > 60 ML/MIN (60-); GLUCOSE 81 mg/dL (74-118); MAGNESIUM 1.5 MG/DL (1.3-2.1); POTASSIUM 4.4 mmol/L (3.5-5.1); SODIUM 141 mmol/L (136-145)
[2018-12-11 07:38] LABS: BUN/CREATININE RATIO 7 (6-25)
[2018-12-11 07:40] VITALS: BP 174/111
[2018-12-11] MEDS: TIZANIDINE HCL 4 MG TAB PO SCH (09:00)
[2018-12-11] MEDS: MULTIVITAMINS/MINERALS TAB PO SCH (09:00)
[2018-12-11] MEDS: BACITRACIN ZINC 15 GM OINT TOP SCH (09:00)
[2018-12-11] MEDS: NICOTINE 21 MG/EA PATCH TOP SCH (09:00)
[2018-12-11] MEDS: SENNOSIDES 8.6 MG TAB PO SCH (09:00)
[2018-12-11] MEDS: METOPROLOL SUCCINATE 50 MG TAB XL PO SCH (09:00)
[2018-12-11] MEDS: LIDOCAINE 5% PATCH TP SCH (09:00)
[2018-12-11] MEDS: CYCLOBENZAPRINE HCL 10 MG TAB PO SCH (09:00)
--- NOTE | 2018-12-11 10:15 | NUR ---
CM SPOKE TO PATIENT AT BEDSIDE REGARDING PATIENT DISCHARGE PLAN AND PLAN OF CARE. PATIENT AND PATIENT EDUCATED ON IMPORTANCE OF MAKING FOLLOW UP PCP APPOINTMENT AND ONCOLOGY APPOINTMENT WITHIN 7 DAYS POST DISCHARGE. PATIENT INQUIRED ABOUT HOSPICE SERVICES. CM EDUCATED PATIENT AND PATIENT ON HOSPICE SERVICES [facility]. PATIENT STATES HE WILL WAIT UNTIL HE GETS A LITTLE MORE SICK BEFORE CONTACTING A HOSPICE COMPANY. PATIENT AND PATIENT GIVEN CHOICES OF HOSPICE COMPANIES IN THE AREA. PATIENT ALSO EDUCATED ON CONTINUITY OF CARE. PATIENT HIGHLY ENCOURAGED TO CONTINUE CARE WHERE HE GETS HIS CANCER TREATMENTS, AFTER RESULTS ARE IN, SO HE DOES NOT DISRUPT HIS TREATMENT REGIMEN. PATIENT AND PATIENT VERBALLY AGREED. NO FURTHER QUESTIONS AT THIS TIME. CM GAVE PATIENT CONTACT INFO FOR ANY QUESTIONS OR CONCERNS THAT MAY ARISE. PATIENT ON PHONE MAKING FOLLOW UP APPOINTMENT NOW. RN NOTIFIED TO VERIFY TIME PRIOR TO DISCHARGE.
[2018-12-11 11:58] VITALS: BP 136/94
--- NOTE | 2018-12-11 12:09 | NUR ---
CM SPOKE TO PATIENT AT BEDSIDE REGARDING IMM LETTER. IMM LETTER GIVEN WITH EXPLANATION. ORIGINAL SIGNED AND PLACED IN CHART; COPY OF ORIGINAL DOCUMENT GIVEN TO PATIENT AT BEDSIDE AND PLACED IN CARE TRANSITION FOLDER. CM CONTACT INFORMATION GIVEN TO PATIENT FOR ANY NEEDS OR CONCERNS. PATIENT WITH NO FURTHER QUESTIONS
--- NOTE | 2018-12-11 13:35 | Progress Note ---
DATE: December 11, 2018 PULMONARY MEDICINE PROGRESS NOTE SUBJECTIVE: Mr. Alvarado was seen and examined at bedside. He continues to have steady progress. He does not have any new chest symptoms after procedures performed yesterday. Results remain pending at this time. The patient is eating and walking around without dizziness. REVIEW OF SYSTEMS: No headaches. No rash. OBJECTIVE VITALS: Afebrile. Vital signs noted per electronic record. GENERAL: No acute distress. Alert and calm. HEENT: Normocephalic and atraumatic. NECK: Supple. Throat midline. LUNGS: Bilateral air entry, decreased but rare rhonchi, but clear other than that. CARDIOVASCULAR: S1 and S2. No murmurs, rubs or gallops. ABDOMEN: Soft and nontender. EXTREMITIES: No clubbing. No cyanosis. No edema. INTEGUMENT: No rash. No purpura. LABS: Creatinine 0.7. White count 10, hematocrit 32. IMPRESSION AND PLAN 1. Lung mass. 2. Abnormal MRI with ostial lesions in the calvarium. 3. Peripheral vascular disease. 4. Chronic obstructive pulmonary disease. The patient can be discharged from a pulmonary point of view. We await pathology reports. Will call the patient to clinic and get authorizations. The patient may or may not need records to be recalled from the [facility]. The patient may need a PET CT to be done. If there is any proven malignancy, he will be recommended for aggressive chemotherapy. Job#: [id number] MORAIMA
--- NOTE | 2018-12-11 15:12 | Consultation ---
DATE OF CONSULTATION: December 09, 2018 Mr. Danial Alvarado is a 68-year-old black gentleman who was referred to me for evaluation of lung cancer, 6.2 x 4.7 x 5.6 cm in the right lung. Right hilar metastases, 2.1 x 2.3 x 2 cm. Left adrenal metastases, 1.6 x 0.9 cm. The patient has had about a 40-pound weight loss. The patient claims that he has had a biopsy of the lung last year at the [facility]. However, the claims that no one called her up. HISTORY OF PAST ILLNESSES: History of aortic abdominal aneurysm, history of left and right external iliac stenting, history of thrombosed left femoral graft. SOCIAL HISTORY: History of excessive smoking. FAMILY HISTORY: Noncontributory. ALLERGIES: REPORTED NONE. MEDICATIONS: At this time: 1. Sodium chloride. 2. Ondansetron. 3. Labetalol. 4. Metoprolol. 5. Multivitamins. 6. Simvastatin. 7. Thiamine. 8. Tramadol. 9. Nicotine. REVIEW OF SYSTEMS HEENT: Normal. CARDIAC: History of peripheral arterial disease. History of abdominal aortic aneurysm. GI: Normal. : History of cancer of the prostate. MUSCULOSKELETAL: Normal. SKIN AND BREASTS: Normal. NEUROENDOCRINE: History of hypothyroidism. PHYSICAL EXAMINATION GENERAL: A cachectic male. Anemic. No palpable adenopathy. HEART: Within normal limits. LUNGS: Clear. ABDOMEN: Soft. RECTAL: Exam deferred. 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 Multiple scars of arterial surgeries over the lower extremities. LABS: Shows a hemoglobin of 11.2, hematocrit 32.2, white 11,200, and platelets 332,000. BUN 6, creatinine 0.7, sodium 141, potassium 4.5, chloride 73, CO2 26. INR 1.02. Bilirubin 0.5, SGOT 88, SGPT 6, alkaline phosphatase 82. CT scan of the chest shows a right lung mass. Right hilar metastases. Left adrenal metastases. Aneurysm of the abdominal aorta. MRI of the brain was done by [facility]. A lung biopsy has been done on December 10, 2018. However, the results are still pending. The MRI of the brain shows a focal enhancing narrow lesion in the right parietal calvarium and left jugular tubercle suggestive of osseous metastases. No evidence of intraperitoneal metastases. 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 IMPRESSION 1. Right lung cancer. 2. Right hilar metastases. 3. Left adrenal metastases. 4. Abdominal aortic aneurysm. 5. Right and left external iliac stenting. 6. Thrombosis left femoral graft. 7. Gallstones. 8. Emphysema. 9. Pericardial effusion. 10. Ascites. 11. Anemia. 12. Hypoalbuminemia. 13. Hyperglobulinemia. PLAN, COMMENTS AND SUGGESTIONS: This is inoperable cancer. This is an incurable cancer. The biopsy has been done. I have come to know that the attending physician has spoken about Hospice. I do agree as this is an incurable disease. Thank you for allowing me to participate in management this patient during this hospitalization. Job#: [id number] RI cc:OVI ACEVEDO M.D. YIMI KIM MD
--- NOTE | 2018-12-11 15:30 | NUR ---
PT DC HOME WITH FAMILY ALL MEDICATIONS WERE DISCUSSED WITH WITH AND PT, IV SITE REMOVED, CATH TIP INTACT, NO SWELLING NO REDNESS TO SITE.
== END 2018-12-11 15:47 | disposition home or self-care (01) | DRG 180 ==
LOC: ER 13:15 → ERHOLD 15:44 → MED/SURG2 16:44
PROVIDERS: ADMIT Internal Medicine; ATTEND Internal Medicine
PROC: 0BBC3ZX Excision of Right Upper Lung Lobe, Percutaneous Approach, Diagnostic (ICD-10-PCS; principal; 2018-12-10)
DX: C34.11 Malignant neoplasm of upper lobe, right bronchus or lung (principal); E43 Unspecified severe protein-calorie malnutrition; C78.01 Secondary malignant neoplasm of right lung; C79.72 Secondary malignant neoplasm of left adrenal gland; L97.229 Non-pressure chronic ulcer of left calf with unspecified severity; Z68.1 Body mass index [BMI] 19.9 or less, adult; K86.1 Other chronic pancreatitis; I87.2 Venous insufficiency (chronic) (peripheral); I10 Essential (primary) hypertension; F17.210 Nicotine dependence, cigarettes, uncomplicated; Z83.3 Family history of diabetes mellitus; Z82.49 Family history of ischemic heart disease and other diseases of the circulatory system; Z85.46 Personal history of malignant neoplasm of prostate; M79.662 Pain in left lower leg; Z95.820 Peripheral vascular angioplasty status with implants and grafts; Z80.1 Family history of malignant neoplasm of trachea, bronchus and lung; R59.0 Localized enlarged lymph nodes; I71.4 Abdominal aortic aneurysm, without rupture; K80.20 Calculus of gallbladder without cholecystitis without obstruction; G20 Parkinson's disease; R62.7 Adult failure to thrive; F10.21 Alcohol dependence, in remission; D64.9 Anemia, unspecified; E88.09 Other disorders of plasma-protein metabolism, not elsewhere classified; R77.1 Abnormality of globulin; J44.9 Chronic obstructive pulmonary disease, unspecified
CPT/HCPCS: 32405; 36415; 70544; 70553; 71045; 71260; 74177; 74470; 77012; 80048; 80053; 81001; 82306; 82378; 82550; 82553; 82607; 82746; 83690; 83735; 84443; 84484; 85025; 85610; 85730; 87385; 87390; 88172; 88173; 88305; 88342; 93005; 93306; 93971; 99152; 99153; 99284; G0433; G0435; J2250; J2270; J2405; J3411; J7030; Q9967